=== PATIENT | male | born 2000 | race Caucasian/White ===

== ENCOUNTER 2023-04-04 20:37 | Emergency (ER) | payer OTHER, SELFPAY ==
[2023-04-04 20:45] VITALS: BP 140/88; PULSE 88; RESP 16; TEMP 37; O2SAT 100
--- NOTE | 2023-04-04 20:46 | ED.GENADULT ---
HPI - General Adult General Chief complaint: Unspecified Stated complaint: Unspecified History of Present Illness HPI narrative: Mitch presented to the ED with a few concerns. He developed a painful, swollen left thumb while training with the [employer] 10 days ago while in [place]. He has poked it with a needle multiple times. No decreased sensation or loss of funcition. He also reports that after he eats he gets heartburn, nauseated, and epigastric pain. Following this he usually gets watery diarrhea after eating. No melena, hematochezia, vomiting, or dysphagia. Related Data Allergies Allergy/AdvReac Type Severity Reaction Status Date / Time No Known Allergies Allergy Verified 04/04/23 20:40 Review of Systems Review of Systems: All systems reviewed & are unremarkable except as noted in HPI and below Exam Const: General: cooperative and healthy appearing Nutritional Appearance: average body habitus and well nourished Orientation/consciousness: oriented to person Limitations: no limitations HENMT: Head: normal to inspection, No palpable skull fracture present and normocephalic Eyes: General: appearance normal, both eyes and all related structures Neck: Neck: normal visual inspection Chest: Chest palpation & inspection: normal inspection of the chest Resp: Effort & Inspection: normal respiratory effort Cardio: Rate: regular rate GI: Inspection: normal to inspection and abdominal wall ecchymosis GI Palp: Yes abdominal tenderness, Yes Soft to palpation, No Tenderness to palpation present (GI) and No Guarding due to palpation present (GI) Auscultation: normal bowel sounds Skin: General skin exam: normal color Neuro: General: oriented to person, oriented to place and oriented to time Extrem: Other: right thumb had erythema and swelling just proximal to the nail bed that was TTP Psych: Appearance: grossly normal Course Course Emergency Course: Given Bactrim, pantoprazole and dicyclomine Vital Signs Vital signs: Vital Signs Temperature 98.6 F 04/04/23 20:45 Pulse Rate 88 04/04/23 20:45 Respiratory Rate 16 04/04/23 20:45 Blood Pressure 140/88 04/04/23 20:45 Pulse Oximetry 100 04/04/23 20:45 Oxygen Delivery Room Air 04/04/23 20:45 Temperature 98.6 F 04/04/23 20:45 Pulse Rate 88 04/04/23 20:45 Respiratory Rate 16 04/04/23 20:45 Blood Pressure 140/88 06/12/23 20:45 Pulse Oximetry 100 04/04/23 20:45 Oxygen Delivery Room Air 04/04/23 20:45 Medical Decision Making Vital Signs Vital Signs: Vital Signs Temperature 98.6 F 04/04/23 20:45 Pulse Rate 88 04/04/23 20:45 Respiratory Rate 16 04/04/23 20:45 Blood Pressure 140/88 04/04/23 20:45 Pulse Oximetry 100 04/04/23 20:45 Oxygen Delivery Room Air 04/04/23 20:45 Temperature 98.6 F 04/04/23 20:45 Pulse Rate 88 04/04/23 20:45 Respiratory Rate 16 04/04/23 20:45 Blood Pressure 140/88 04/04/23 20:45 Pulse Oximetry 100 04/04/23 20:45 Oxygen Delivery Room Air 04/04/23 20:45 Discharge Plan Discharge Clinical Impression: Chronic GERD, Diarrhea, Paronychia Patient Disposition: Home, Self-Care Condition: Stable Instructions: GERD (Gastroesophageal Reflux Disease) (ED) Prescriptions: New pantoprazole 40 mg tablet,delayed release (DR/EC) 40 mg PO HS Qty: 10 0RF dicyclomine 20 mg tablet 20 mg PO BID PRN (Reason: abdominal pain and diarrhea) Qty: 20 0RF sulfamethoxazole-trimethoprim [Bactrim DS] 800-160 mg tablet 1 tablet PO Q12H Qty: 10 0RF pantoprazole 40 mg tablet,delayed release (DR/EC) 40 mg PO HS Qty: 10 0RF dicyclomine 20 mg tablet 20 mg PO BID Qty: 20 0RF sulfamethoxazole-trimethoprim [Bactrim DS] 800-160 mg tablet 1 tablet PO Q12H Qty: 10 0RF Follow-up/Referrals: UNKNOWN,DOCTOR [Primary Care Provider] -
[2023-04-04] MEDS: DICYCLOMINE HCL 10 MG CAPSULE 20 MG PO (20:53)
[2023-04-04] MEDS: SULFAMETHOXAZOLE/TRIMETHOPRIM 800/160 MG DS TABLET 2 TAB PO (20:53)
[2023-04-04] MEDS: PANTOPRAZOLE 40 MG TABLET PO (20:54)
[2023-04-04 21:05] VITALS: BP 132/70; PULSE 89; RESP 20; TEMP 37.2; O2SAT 98
== END 2023-04-04 21:06 | disposition home or self-care (01) ==
LOC: CHSED 20:56
PROVIDERS: Emergency Provider Family Medicine
DX: K21.9 Gastro-esophageal reflux disease without esophagitis (principal); L03.012 Cellulitis of left finger; R19.7 Diarrhea, unspecified
CPT/HCPCS: 99283; A9270